=== PATIENT | female | born 1975 | race African-American/Black ===

== ENCOUNTER 2017-07-13 05:10 | Emergency (ER) | payer OTHER ==
[~2017-07-13] VITALS: Ht 154.9 cm; Wt 101.0 kg
[2017-07-13 07:07] LABS: BASOPHILS % 0.3 % (0.0-2.0); EOSINOPHILS % 0.4 % (0.0-5.0); HEMATOCRIT. 33.4 % (36.0-48.0); HEMOGLOBIN. 10.9 g/dL (12.0-16.0); LYMPHOCYTES % 18.5 % (20.0-50.0); MEAN CORPUSCULAR HEMOGLOBIN 22.3 pg (28.0-32.0); MEAN CORPUSCULAR VOLUME 68.3 fL (81.0-99.0); MEAN PLATELET VOLUME 8.4 fl (7.4-10.4); MONOCYTES % 5.1 % (2.0-8.0); NEUTROPHILS % 75.7 % (40.0-76.0); PLATELET 315 x1000/uL (130-400); RED BLOOD CELL COUNT 4.89 mill/uL (4.2-5.4); RED CELL DISTRIBUTION WIDTH 17.1 % (11.6-14.6)
[2017-07-13 07:15] LABS: PROTHROMBIN TIME 10.7 sec (9.4-11.6)
[2017-07-13 07:22] LABS: CARBON DIOXIDE 26 mEq/L (21-32); CHLORIDE 107 mEq/L (98-107)
[2017-07-13 07:24] LABS: TROPONIN I < 0.02 ng/mL (0.00-0.04)
[2017-07-13 08:30] LABS: PLATELET ESTIMATE NORMAL
[2017-07-13 09:03] LABS: *AMPHETAMINES SCREEN URINE NEGATIVE (NEGATIVE); *BARBITURATES SCREEN URINE NEGATIVE (NEGATIVE); *BENZODIAZEPINES SCREEN URINE NEGATIVE (NEGATIVE); *COCAINE SCREEN URINE NEGATIVE (NEGATIVE); METHADONE URINE SCREEN NEGATIVE (NEGATIVE); OPIATES URINE SCREEN NEGATIVE (NEGATIVE); PHENCYCLIDINE URINE SCREEN NEGATIVE (NEGATIVE)
[2017-07-13 09:23] LABS: CANNABINOID URINE SCREEN PRESUMTIVE POSITIVE (NEGATIVE)
[2017-07-13] MEDS ORDERED: ALBUTEROL (0.083%) 2.5MG/3ML NEB HHN ONE (10:00)
[2017-07-13 12:01] VITALS: BP 141/65
== END 2017-07-13 12:03 | disposition home or self-care (01) ==
LOC: ER 08:40
DX: J45.909 Unspecified asthma, uncomplicated (principal); R11.0 Nausea
CPT/HCPCS: 36415; 71010; 80048; 80305; 81025; 83880; 84484; 85025; 85610; 93005; 94640; 99285; J7611; Z7610; 96372; 99283